=== PATIENT | male | born 1975 | race Caucasian/White ===

== ENCOUNTER 2020-08-26 18:56 | Emergency (ER) | payer SELFPAY ==
[~2020-08-26] VITALS: Ht 190.5 cm; Wt 110.0 kg
--- NOTE | 2020-08-26 21:49 | PHYS DOC ---
Past Medical History Past Medical History: No Pertinent History Past Surgical History: No Surgical History Smoking Status: Light Tobacco Smoker Alcohol Use: None General Adult EDM: Chief Complaint: ABDOMINAL PAIN HPI: HPI: Patient is a [age]-year-old male who presents via POV for URI-like symptoms. States he has had x1 week of generalized upper respiratory tract symptoms such as nasal congestion, rhinorrhea, intermittent tension headache, dry nonproductiv e cough, and nausea. States he lives at home with numerous family members, does not know for sure if anyone has been sick. No fever, no known COVID-19 exposure, he has not received any of the COVID-19 vaccinations. On arrival, he states he is fatigued, no fever, no chest pain, no cough, no abdominal pain, no dysuria Review of Systems: Review of Systems: Fourteen body systems of review of systems have been reviewed. See HPI for pertinent positives and negative responses, other lucero all other systems are negative, non-pertinent or non-contributory Heart Score: C/O Chest Pain: No HEART Score for Chest Pain: HEART Score for Chest Pain Response (Comments) Value History Slighlty/Non-Suspicious 0 Age >45 - < 65 1 Risk Factors 1 or 2 Risk Factors 1 Total 2 Risk Factors: Risk Factors: DM, Current or recent (<one month) smoker, HTN, HLP, family history of CAD, obesity. Risk Scores: Score 0 - 3: 2.5% MACE over next 6 weeks - Discharge Home Score 4 - 6: 20.3% MACE over next 6 weeks - Admit for Clinical Observation Score 7 - 10: 72.7% MACE over next 6 weeks - Early Invasive Strategies Physical Exam: PE: General: Appears well, non toxic, and comfortable Skin: Warm, dry. Normal for ethnicity. HEENT: Atraumatic. PERRLA. Rhinorrhea and congestion. Nasal turbinates boggy b/l. Moist mucous membranes. Uvula midline. Maintaining secretions. No phonation changes. Neck: Trachea midline. Normal ROM. No stridor. Respiratory: Normal WOB. CTAB w/o w/r/r. No tachypnea. Cardiovascular: Regular rate and rhythm. Normal peripheral perfusion. Abdomen: Soft. Non tender. No distension. Back: Normal ROM. Musculoskeletal: No swelling or deformity. Neuro: Alert and oriented x 4. MAEE. Lymph: No cervical LAD. Psych: Normal affect and mood. Current Patient Data: Vital Signs: Vital Signs Date Time Temp Pulse Resp B/P (MAP) Pulse Ox O2 Delivery O2 Flow Rate FiO2 08/26/20 21:30 98.5 81 16 138/74 (95) 97 Room Air 98.5 EKG: EKG: EKG ordered and interpreted by myself at 2240 hrs. as sinus rhythm at 73 bpm, unremarkable intervals, no axis deviation, no ischemic findings, no STEMI Radiology/Procedures: Radiology/Procedures: XR CHEST 1V Clinical Indication: Reason: COUGH / Spl. Instructions: / History: Comparison: None. Findings: The cardiomediastinal silhouette is normal. Lungs are clear. There is left perihilar nodule measuring 6 mm. There is no pneumothorax. No pleural effusion is appreciated. No acute bone abnormality. IMPRESSION: There is a 6 mm left perihilar nodule. Lungs are otherwise clear. Electronically signed by: Phan Redding MD (08/26/2020 11:05 PM) [facility] Course & Med Decision Making: Course & Med Decision Making Discussed with the patient all findings and diagnostic testing. I discussed most likely diagnosis of viral syndrome but could not exclude COVID-19 infection and so, flu and Covid swabs were offered. Flu negative, person under investigation for COVID-19 until results pend. I stressed need for close outpatient follow-up to review today's ER visit when safe to do so. I educated extensively on supportive care practices and need to self quarantine until results are communicated to him. Strict return precautions were also discussed at length with good understanding by patient. Patient voiced understanding and agreement with the plan. Patient knows to come back for repeat evaluation if concerning signs or symptoms present prior to outpatient follow-up. Hemodynamically stable, ambulatory and well-appearing at time of disposition. Dragon Disclaimer: Dragon Disclaimer: This electronic medical record was generated, in whole or in part, using a voice recognition dictation system. Departure Departure Impression: Primary Impression: Person under investigation for COVID-19 Additional Impression: Viral syndrome Disposition: HOME / SELF CARE / HOMELESS Condition: STABLE Referrals: NO PCP (PCP) Patient Instructions: Viral Syndrome Additional Instructions: You were seen for generalized symptoms and body aches with possible infection with COVID-19. Your physical exam was reassuring. Your chest x-ray was normal. We tested you for COVID-19 but this test does not come back for 1 to 2 days. In the meantime you need to quarantine yourself at home away from all other individuals, especially those who are elderly or have any other chronic health issues or an immunocompromised status. You should return to the ED if you develop worsening cough, shortness of breath, chest pain, or any other new or concerning symptoms. Alternate Tylenol and ibuprofen as needed for body aches and pain. If your test does come back positive you need to quarantine yourself for 10 days until symptom-free. You should make sure to drink plenty of fluids and get plenty of rest. CHILO YAO DO August 26, 2020 21:49
[2020-08-26 23:05] LABS: INFLUENZA A PATIENT NEGATIVE (NEGATIVE); INFLUENZA B PATIENT NEGATIVE (NEGATIVE)
--- NOTE | 2020-08-26 23:07 | RAD ---
XR CHEST 1V Clinical Indication: Reason: COUGH / Spl. Instructions: / History: Comparison: None. Findings: The cardiomediastinal silhouette is normal. Lungs are clear. There is left perihilar nodule measuring 6 mm. There is no pneumothorax. No pleural effusion is appreciated. No acute bone abnormality. IMPRESSION: There is a 6 mm left perihilar nodule. Lungs are otherwise clear. Electronically signed by: Phan Redding MD (08/26/2020 11:05 PM) [facility]
[2020-08-26 23:17] VITALS: BP 115/58
--- NOTE | 2020-08-27 01:17 | EKG ---
[facility] [address] [place] [address] Test Date: 2020-08-26 Test Time: 22:35:05 Pat Name: NYASIA ALVARAOD Department: Room: Gender: M [employer]cher: : 1975 Requested By: CHILO YAO Order Number: [id number] Reading MD: Measurements Intervals [place] Rate: 73 P: 24 TN: 164 QRS: 21 QRSD: 92 T: 14 QT: 388 QTc: 431 Interpretive Statements SINUS RHYTHM NO SPECIFIC ECG ABNORMALITIES RI6.01 No previous ECG available for comparison
--- NOTE | 2020-08-27 13:37 | NUR ---
IP: Attempted to contact pt concerning COVID results. No answer and voice mailbox is full. Sent SMS notification.
== END 2020-08-26 23:36 | disposition home or self-care (01) ==
LOC: ER 18:56
DX: B34.9 Viral infection, unspecified (principal); Z20.822 Contact with and (suspected) exposure to COVID-19; Z72.0 Tobacco use
CPT/HCPCS: 71045; 87804; 93005; 99285; U0003; U0005